=== PATIENT | female | born 1975 | race American Indian/Alaskan Native ===

== ENCOUNTER → 2017-11-26 | Outpatient (CLI) | payer OTHER | LOC: M RAD 15:41 | DX: O26.613 Liver and biliary tract disorders in pregnancy, third trimester (principal); Z3A.34 34 weeks gestation of pregnancy | CPT/HCPCS: 76820 ==

== ENCOUNTER 2018-03-14 16:43 | Emergency (ER) | payer OTHER | END 2018-03-14 17:16 | disposition home or self-care (01) | LOC: M ED 16:43 | DX: M54.41 Lumbago with sciatica, right side (principal); Z79.899 Other long term (current) drug therapy; Z88.5 Allergy status to narcotic agent | CPT/HCPCS: 99282 ==

== ENCOUNTER 2018-03-15 12:02 | Inpatient (IN) | payer OTHER ==
[2018-03-15] MEDS: methylPREDNISolone INJ 125 MG/2 ML VIAL (J2930) IV (14:30)
[2018-03-15] MEDS: diazePAM 10 MG TAB PO (14:30)
[2018-03-15] MEDS: KETOROLAC 30 MG/ML VIAL (J1885) IV (14:30)
[2018-03-15] MEDS ORDERED: METOCLOPRAMIDE INJ 10MG/2ML VIAL (J2765) IV (16:15)
[2018-03-15] MEDS: MORPHINE 4 MG/ML 1ML VIAL/SYRINGE (J2270) IV (16:57)
[2018-03-15] MEDS: ONDANSETRON 4MG/2ML VIAL (J2405) IV (16:57)
[2018-03-15] MEDS ORDERED: ONDANSETRON 4MG/2ML VIAL (J2405) IV (21:15)
[2018-03-15 22:32] LABS: HEMATOCRIT 43.5 % (36.0-47.0); HEMOGLOBIN 14.4 g/dl (12.0-15.5); MEAN CORPUSCULAR HEMOGLOBIN 28.8 pg (27.0-33.0); MEAN CORPUSCULAR HGB CONC 33.1 g/dl (32.0-36.5); PLATELET COUNT, AUTOMATED 299 10^3/uL (150-450); RED CELL DISTRIBUTION WIDTH 12.7 % (11.5-14.5); WHITE BLOOD COUNT 8.7 10^3/uL (4.0-10.0)
[2018-03-15 22:55] LABS: ANION GAP 9 MEQ/L (8-16); BLOOD UREA NITROGEN 16 MG/DL (7-18); CALCIUM LEVEL 9.1 MG/DL (8.5-10.1); CARBON DIOXIDE LEVEL 22 MEQ/L (21-32); CHLORIDE LEVEL 109 MEQ/L (98-107); CREATININE FOR GFR 1.33 MG/DL (0.55-1.30); GLUCOSE, FASTING 139 MG/DL (70-100); POTASSIUM SERUM 4.4 MEQ/L (3.5-5.1); SODIUM LEVEL 140 MEQ/L (136-145)
[2018-03-15] MEDS: KETOROLAC TROMETHAMINE 10 MG TAB PO (23:31)
[2018-03-16] MEDS: HEPARIN SOD (PORCINE) 5000 UNITS/ML VIAL SC ×3 (05:04→21:03)
[2018-03-16 07:21] LABS: HEMATOCRIT 40.8 % (36.0-47.0); HEMOGLOBIN 13.6 g/dl (12.0-15.5); MEAN CORPUSCULAR HEMOGLOBIN 28.9 pg (27.0-33.0); MEAN CORPUSCULAR HGB CONC 33.3 g/dl (32.0-36.5); MEAN CORPUSCULAR VOLUME 86.6 fl (80.0-96.0); PLATELET COUNT, AUTOMATED 324 10^3/uL (150-450); RED BLOOD COUNT 4.71 10^6/uL (4.00-5.40); RED CELL DISTRIBUTION WIDTH 12.7 % (11.5-14.5); WHITE BLOOD COUNT 11.3 10^3/uL (4.0-10.0)
[2018-03-16 07:37] LABS: ANION GAP 7 MEQ/L (8-16); BLOOD UREA NITROGEN 22 MG/DL (7-18); C REACTIVE PROTEIN QUANTITATIV < 0.30 MG/DL (0.00-0.30); CALCIUM LEVEL 9.3 MG/DL (8.5-10.1); CARBON DIOXIDE LEVEL 27 MEQ/L (21-32); CHLORIDE LEVEL 105 MEQ/L (98-107); CREATININE FOR GFR 1.36 MG/DL (0.55-1.30); GLOMERULAR FILTRATION RATE 45.8 (>58); GLUCOSE, FASTING 139 MG/DL (70-100); POTASSIUM SERUM 4.1 MEQ/L (3.5-5.1); SODIUM LEVEL 139 MEQ/L (136-145)
[2018-03-16 07:54] LABS: ERYTHROCYTE SEDIMENTATION RATE 27 mm/hr (0-20)
[2018-03-16] MEDS: KETOROLAC TROMETHAMINE 10 MG TAB PO (08:22)
[2018-03-16] MEDS ORDERED: traMADol 50 MG TAB PO ×2 (08:45)
[2018-03-16] MEDS: KETOROLAC 30 MG/ML VIAL (J1885) IV (09:07)
[2018-03-16] MEDS: traMADol 50 MG TAB PO (09:07)
[2018-03-16] MEDS: CYCLOBENZAPRINE 10 MG TAB PO ×2 (09:07→13:39)
[2018-03-16] MEDS: PERCOCET 5MG/325MG TAB PO ×3 (13:40→23:31)
[2018-03-16] MEDS: GABAPENTIN 300 MG CAP PO ×2 (17:02→21:03)
[2018-03-16] MEDS: MIRALAX *UNIT DOSE* 17GM PACKET PO (23:29)
[2018-03-17] MEDS: SENNA 8.6 MG TAB (SENOKOT) PO (04:45)
[2018-03-17] MEDS: PERCOCET 5MG/325MG TAB PO ×4 (04:45→23:13)
[2018-03-17] MEDS: GABAPENTIN 300 MG CAP PO ×3 (09:06→21:13)
[2018-03-17] MEDS: MOM 30ML SUSPENSION UDC PO (10:34)
[2018-03-17] MEDS: HEPARIN SOD (PORCINE) 5000 UNITS/ML VIAL SC ×2 (14:00→21:14)
[2018-03-17] MEDS: methylPREDNISolone 4 MG TAB PO ×3 (15:00→23:09)
[2018-03-17] MEDS ORDERED: BUPIVACAINE HCL 0.25% 10 ML VIAL As Ordered (16:52)
[2018-03-17] MEDS ORDERED: BUPIVACAINE HCL 0.25% 30 ML VIAL As Ordered (16:52)
[2018-03-17 18:25] LABS: CONTROL LINE HCG INT CTR LINE PRESENT; HCG, SERUM QUALITATIVE NEGATIVE (NEGATIVE)
[2018-03-18] MEDS: HEPARIN SOD (PORCINE) 5000 UNITS/ML VIAL SC ×3 (05:05→20:33)
[2018-03-18] MEDS: PERCOCET 5MG/325MG TAB PO (06:33)
[2018-03-18] MEDS: GABAPENTIN 300 MG CAP PO ×3 (09:04→20:32)
[2018-03-18] MEDS: NORETHINDRONE 0.35 MG PO (09:04)
[2018-03-18] MEDS: methylPREDNISolone 4 MG TAB PO (09:06)
[2018-03-18] MEDS: LABETALOL 100 MG TAB PO ×2 (09:06→20:33)
[2018-03-18] MEDS: MOM 30ML SUSPENSION UDC PO (09:12)
[2018-03-18] MEDS: SENNA 8.6 MG TAB (SENOKOT) PO (09:12)
[2018-03-18] MEDS ORDERED: oxyCODONE 5MG TAB As Ordered (11:21)
[2018-03-18] MEDS ORDERED: diazePAM 5 MG TAB As Ordered (11:21)
[2018-03-18] MEDS ORDERED: TRIAMCINOLONE ACETONIDE SUSP 40 MG/ML VIAL (J3301) As Ordered (11:27)
[2018-03-18] MEDS ORDERED: ISOVUE-M 300 61% 15ML VIAL (Q9967) As Ordered (11:27)
[2018-03-18] MEDS ORDERED: LIDOCAINE 1% SDV INJ 30 ML VIAL As Ordered (11:27)
[2018-03-18] MEDS ORDERED: BUPIVACAINE HCL 0.25% 30 ML VIAL As Ordered (11:27)
[2018-03-18] MEDS ORDERED: methylPREDNISolone 4 MG TAB PO (15:00)
[2018-03-18] MEDS: MIRALAX *UNIT DOSE* 17GM PACKET PO (16:50)
[2018-03-18] MEDS: BISACODYL 10 MG SUPP PR (20:33)
[2018-03-18] MEDS: IBUPROFEN 600 MG TAB PO (20:35)
[2018-03-19] MEDS: HEPARIN SOD (PORCINE) 5000 UNITS/ML VIAL SC ×3 (06:49→21:36)
[2018-03-19] MEDS: IBUPROFEN 600 MG TAB PO (06:59)
[2018-03-19] MEDS: methylPREDNISolone 4 MG TAB PO (08:06)
[2018-03-19] MEDS: GABAPENTIN 300 MG CAP PO ×3 (08:07→20:46)
[2018-03-19] MEDS: LABETALOL 100 MG TAB PO ×2 (08:08→20:46)
[2018-03-19] MEDS: NORETHINDRONE 0.35 MG PO (08:08)
[2018-03-19] MEDS ORDERED: methylPREDNISolone 4 MG TAB PO ×2 (09:00)
[2018-03-19] MEDS ORDERED: PERCOCET 5MG/325MG TAB PO (10:30)
[2018-03-19] MEDS: tiZANidine 4 MG TAB PO ×3 (10:50→20:46)
[2018-03-19] MEDS: PERCOCET 5MG/325MG TAB PO ×3 (10:50→23:39)
[2018-03-19 11:03] LABS: BASO % 0.1 % (0.0-1.0); EOS # 0.1 10^3/uL (0.0-0.50); EOS % 0.7 % (0.0-3.0); HEMATOCRIT 40.4 % (36.0-47.0); IMMATURE GRANULOCYTE % 0.9 % (0-3.0); LYMPH % 6.6 % (24.0-44.0); MEAN CORPUSCULAR HEMOGLOBIN 28.8 pg (27.0-33.0); MEAN CORPUSCULAR HGB CONC 32.2 g/dl (32.0-36.5); MEAN CORPUSCULAR VOLUME 89.6 fl (80.0-96.0); MONO # 0.8 10^3/uL (0.0-0.8); MONO % 5.5 % (0.0-5.0); NEUTROPHILS # 12.8 10^3/uL (1.8-7.7); NEUTROPHILS % 86.2 % (36.0-66.0); PLATELET COUNT, AUTOMATED 294 10^3/uL (150-450); RED BLOOD COUNT 4.51 10^6/uL (4.00-5.40); RED CELL DISTRIBUTION WIDTH 12.8 % (11.5-14.5); WHITE BLOOD COUNT 14.8 10^3/uL (4.0-10.0)
[2018-03-19 11:42] LABS: ANION GAP 8 MEQ/L (8-16); BLOOD UREA NITROGEN 23 MG/DL (7-18); CALCIUM LEVEL 8.7 MG/DL (8.5-10.1); CARBON DIOXIDE LEVEL 26 MEQ/L (21-32); CHLORIDE LEVEL 106 MEQ/L (98-107); CREATININE FOR GFR 1.41 MG/DL (0.55-1.30); GLUCOSE, FASTING 160 MG/DL (70-100); SODIUM LEVEL 140 MEQ/L (136-145)
[2018-03-19] MEDS: SENNA 8.6 MG TAB (SENOKOT) PO (16:15)
[2018-03-19] MEDS: MIRALAX *UNIT DOSE* 17GM PACKET PO (16:15)
[2018-03-19] MEDS: ACETAMINOPHEN TAB 650MG DOSE (2X325MG) PO (21:37)
[2018-03-20] MEDS: HEPARIN SOD (PORCINE) 5000 UNITS/ML VIAL SC (05:51)
[2018-03-20 07:39] LABS: BASO % 0.2 % (0.0-1.0); EOS # 0.1 10^3/uL (0.0-0.50); EOS % 0.7 % (0.0-3.0); HEMATOCRIT 40.9 % (36.0-47.0); HEMOGLOBIN 12.9 g/dl (12.0-15.5); IMMATURE GRANULOCYTE % 0.8 % (0-3.0); LYMPH # 1.3 10^3/uL (1.5-4.5); LYMPH % 9.8 % (24.0-44.0); MEAN CORPUSCULAR HEMOGLOBIN 28.8 pg (27.0-33.0); MEAN CORPUSCULAR HGB CONC 31.5 g/dl (32.0-36.5); MEAN CORPUSCULAR VOLUME 91.3 fl (80.0-96.0); MONO # 0.7 10^3/uL (0.0-0.8); MONO % 5.4 % (0.0-5.0); NEUTROPHILS # 11.1 10^3/uL (1.8-7.7); NEUTROPHILS % 83.1 % (36.0-66.0); PLATELET COUNT, AUTOMATED 311 10^3/uL (150-450); RED BLOOD COUNT 4.48 10^6/uL (4.00-5.40); RED CELL DISTRIBUTION WIDTH 13.1 % (11.5-14.5); WHITE BLOOD COUNT 13.3 10^3/uL (4.0-10.0)
[2018-03-20 07:46] LABS: ANION GAP 7 MEQ/L (8-16); BLOOD UREA NITROGEN 23 MG/DL (7-18); CALCIUM LEVEL 8.4 MG/DL (8.5-10.1); CARBON DIOXIDE LEVEL 24 MEQ/L (21-32); CHLORIDE LEVEL 109 MEQ/L (98-107); CREATININE FOR GFR 1.17 MG/DL (0.55-1.30); GLOMERULAR FILTRATION RATE 54.5 (>58); GLUCOSE, FASTING 126 MG/DL (70-100); POTASSIUM SERUM 4.1 MEQ/L (3.5-5.1); SODIUM LEVEL 140 MEQ/L (136-145)
[2018-03-20] MEDS: tiZANidine 4 MG TAB PO ×3 (08:42→22:22)
[2018-03-20] MEDS: GABAPENTIN 300 MG CAP PO ×3 (08:47→22:21)
[2018-03-20] MEDS: LABETALOL 100 MG TAB PO ×2 (08:48→22:22)
[2018-03-20] MEDS: NORETHINDRONE 0.35 MG PO (08:48)
[2018-03-20] MEDS: methylPREDNISolone 4 MG TAB PO (08:48)
[2018-03-20] MEDS ORDERED: methylPREDNISolone 4 MG TAB PO (09:00)
[2018-03-20] MEDS: MIRALAX *UNIT DOSE* 17GM PACKET PO (09:27)
[2018-03-20] MEDS: SENNA 8.6 MG TAB (SENOKOT) PO (09:27)
[2018-03-20] MEDS: PERCOCET 5MG/325MG TAB PO ×2 (10:24→22:24)
[2018-03-20] MEDS ORDERED: methylPREDNISolone SUSP 40 MG/ML (DEPO-medrol) VIAL (J1030) As Ordered (15:36)
[2018-03-20] MEDS ORDERED: ISOVUE-M 300 61% 15ML VIAL (Q9967) As Ordered (15:36)
[2018-03-20] MEDS ORDERED: LIDOCAINE 1% SDV INJ 30 ML VIAL As Ordered (15:36)
[2018-03-20] MEDS ORDERED: diazePAM 5 MG TAB As Ordered (15:41)
[2018-03-20] MEDS ORDERED: oxyCODONE 5MG TAB As Ordered (15:41)
[2018-03-21] MEDS ORDERED: methylPREDNISolone 4 MG TAB PO (09:00)
[2018-03-21] MEDS: PERCOCET 5MG/325MG TAB PO (09:29)
[2018-03-21] MEDS: GABAPENTIN 300 MG CAP PO ×2 (09:34→16:00)
[2018-03-21] MEDS: LABETALOL 100 MG TAB PO (09:34)
[2018-03-21] MEDS: NORETHINDRONE 0.35 MG PO (09:35)
[2018-03-21] MEDS: tiZANidine 4 MG TAB PO ×2 (09:35→16:00)
[2018-03-21] MEDS: methylPREDNISolone 4 MG TAB PO (09:36)
[2018-03-21] MEDS ORDERED: PILL CRUSHER/CUTTER 1 EACH XX (10:00)
[2018-03-22] MEDS ORDERED: methylPREDNISolone 4 MG TAB PO ×2 (09:00)
== END 2018-03-21 18:00 | disposition home or self-care (01) | DRG 776 ==
LOC: M MSPAV 03-17 17:35 → M MS4PR 03-16 00:15 → M MSPAV 03-17 18:53 → M ED 12:02 → M MSPAV 03-19 12:06 → M ED 16:36 → M ED INP 21:05
PROC: 3E0R33Z Introduction of Anti-inflammatory into Spinal Canal, Percutaneous Approach (ICD-10-PCS; principal; 2018-03-20)
PROC: 3E0233Z Introduction of Anti-inflammatory into Muscle, Percutaneous Approach (ICD-10-PCS; 2018-03-20)
DX: O99.89 Other specified diseases and conditions complicating pregnancy, childbirth and the puerperium (principal); M47.26 Other spondylosis with radiculopathy, lumbar region; O10.43 Pre-existing secondary hypertension complicating the puerperium